=== PATIENT | female | born 1950 | race Caucasian/White ===

== ENCOUNTER 2025-05-16 17:33 | Emergency (ER) | payer SELFPAY ==
[2025-05-16 17:35] VITALS: BP 122/79
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
== END 2025-05-16 21:03 | disposition home or self-care (01) ==
LOC: EMR 17:33
PROVIDERS: EMERGENCY PHYSICIAN Emergency Medicine
DX: S39.012A Strain of muscle, fascia and tendon of lower back, initial encounter (principal); S63.501A Unspecified sprain of right wrist, initial encounter; M54.2 Cervicalgia; V49.59XA Passenger injured in collision with other motor vehicles in traffic accident, initial encounter; Z86.72 Personal history of thrombophlebitis
CPT/HCPCS: 99284; 71046; 72040; 72100; 73080; 73110